=== PATIENT | female | born 1995 | race Caucasian/White ===

== ENCOUNTER → 2017-07-14 | Outpatient (CLI) | payer OTHER | LOC: BHSO 11:13 | DX: F33.1 Major depressive disorder, recurrent, moderate (principal) | CPT/HCPCS: 90791-AI ==

== ENCOUNTER → 2017-08-11 | Outpatient (CLI) | payer OTHER | LOC: BHSO 10:52 | DX: F33.41 Major depressive disorder, recurrent, in partial remission (principal) ==

== ENCOUNTER → 2017-09-14 | Outpatient (CLI) | payer OTHER | LOC: BHSO 10:18 | DX: F33.41 Major depressive disorder, recurrent, in partial remission (principal) ==

== ENCOUNTER → 2017-10-30 | Outpatient (CLI) | payer OTHER | LOC: BHSO 10:26 | DX: F41.1 Generalized anxiety disorder (principal) | CPT/HCPCS: G0463 ==

== ENCOUNTER → 2017-11-18 | Outpatient (CLI) | payer OTHER | LOC: BHSO 13:02 | DX: F41.1 Generalized anxiety disorder (principal) ==

== ENCOUNTER → 2017-12-02 | Outpatient (CLI) | payer OTHER | LOC: BHSO 10:03 | DX: F41.1 Generalized anxiety disorder (principal) ==

== ENCOUNTER → 2017-12-15 | Outpatient (CLI) | payer OTHER | LOC: BHSO 10:02 | DX: F41.1 Generalized anxiety disorder (principal) ==

== ENCOUNTER → 2017-12-29 | Outpatient (CLI) | payer OTHER | LOC: BHSO 14:41 | DX: F33.42 Major depressive disorder, recurrent, in full remission (principal) | CPT/HCPCS: G0463 ==

== ENCOUNTER → 2018-01-12 | Outpatient (CLI) | payer OTHER | LOC: BHSO 10:00 | DX: F40.10 Social phobia, unspecified (principal) ==

== ENCOUNTER → 2018-01-26 | Outpatient (CLI) | payer OTHER | LOC: BHSO 09:53 | DX: F40.10 Social phobia, unspecified (principal) ==

== ENCOUNTER → 2018-02-02 | Outpatient (CLI) | payer OTHER | LOC: BHSO 09:45 | DX: F40.10 Social phobia, unspecified (principal) ==

== ENCOUNTER → 2018-02-23 | Outpatient (CLI) | payer OTHER | LOC: BHSO 09:56 | DX: F90.0 Attention-deficit hyperactivity disorder, predominantly inattentive type (principal) ==

== ENCOUNTER → 2018-03-02 | Outpatient (CLI) | payer OTHER | LOC: BHSO 15:06 | DX: F90.0 Attention-deficit hyperactivity disorder, predominantly inattentive type (principal) | CPT/HCPCS: G0463 ==

== ENCOUNTER → 2018-03-16 | Outpatient (CLI) | payer OTHER | LOC: BHSO 09:56 | DX: F90.0 Attention-deficit hyperactivity disorder, predominantly inattentive type (principal) ==

== ENCOUNTER → 2018-03-23 | Outpatient (CLI) | payer OTHER | LOC: BHSO 13:07 | DX: F90.0 Attention-deficit hyperactivity disorder, predominantly inattentive type (principal) ==

== ENCOUNTER → 2018-04-01 | Outpatient (CLI) | payer OTHER | LOC: BHSO 13:44 | DX: F90.0 Attention-deficit hyperactivity disorder, predominantly inattentive type (principal) | CPT/HCPCS: G0463 ==

== ENCOUNTER → 2018-04-06 | Outpatient (CLI) | payer OTHER | LOC: BHSO 11:00 | DX: F90.0 Attention-deficit hyperactivity disorder, predominantly inattentive type (principal) ==

== ENCOUNTER → 2018-05-26 | Outpatient (CLI) | payer OTHER | LOC: BHSO 14:24 | DX: F90.0 Attention-deficit hyperactivity disorder, predominantly inattentive type (principal) | CPT/HCPCS: G0463 ==

== ENCOUNTER → 2018-05-27 | Outpatient (CLI) | payer OTHER | LOC: BHSO 13:17 | DX: F90.0 Attention-deficit hyperactivity disorder, predominantly inattentive type (principal) ==